=== PATIENT | male | born 1950 | race Caucasian/White ===

== ENCOUNTER 2018-05-26 21:33 | Emergency (ER) | payer OTHER ==
[~2018-05-26] VITALS: Ht 167.6 cm; Wt 74.8 kg
--- NOTE | 2018-05-26 21:59 | PHYS DOC ---
Past Medical History Past Medical History: Hypertension Additional Past Medical Histor: prostatism Smoking: Cigarettes Adult General Chief Complaint Chief Complaint: CHEST PAIN HPI HPI Patient is a 67-year-old male who presents to the emergency department via EMS for chest pain. He states he has been having chest pain on and off for the past month, usually precipitated by physical exertion or activity. He states that this evening, or get away from it, he experienced a more intense episode of anterior chest pressure, with radiation towards his neck and right shoulder area. The pain lasted about 30 minutes until EMS arrived on the scene and administered 324 mg of aspirin, as well as sublingual nitroglycerin, which resulted in the patient's pain completely resolving to the point that he is pain -free at this time. He denies current symptoms. He did not have any shortness of breath, nausea, vomiting, but states he did feel somewhat sweaty earlier. He states he has not had similar pain in the past and this episode of pain was much more intense. Other than the stated above there are no alleviating or exacerbating factors to the patient's symptoms. Review of Systems Review of Systems Constitutional: Denies fever or chills [] Eyes: Denies change in visual acuity, redness, or eye pain [] HENT: Denies nasal congestion or sore throat [] Respiratory: Denies cough or shortness of breath [] Cardiovascular: No additional information not addressed in HPI [] GI: Denies abdominal pain, nausea, vomiting, bloody stools or diarrhea [] : Denies dysuria or hematuria [] Musculoskeletal: Denies back pain or joint pain [] Integument: Denies rash or skin lesions [] Neurologic: Denies headache, focal weakness or sensory changes [] Endocrine: Denies polyuria or polydipsia [] All other systems were reviewed and found to be within normal limits, except as documented in this note. Current Medications Current Medications Current Medications Medications (Trade) Dose Ordered Sig/Delma Start Time Stop Time Status Last Admin Dose Admin Nitroglycerin (Nitro-Bid Oint) 1 inch 1X ONCE 05/26/18 22:15 05/26/18 22:16 DC 05/26/18 22:27 1 INCH Allergies Allergies Allergies Coded Allergies Type Severity Reaction Last Updated Verified No Known Drug Allergies 05/26/18 No Physical Exam Physical Exam PHYSICAL EXAM: CONSTITUTIONAL: Well developed, well nourished HEAD: normocephalic, atraumatic. There is a dark large raised mole on the scalp , with some mild surrounding erythema which the patient states has been gradually enlarging over the past 15 years. EENT: PERRL, EOMI. Conjunctivae normal color, sclerae non-icteric; moist mucous membranes. NECK: Supple, non-tender; no meningismus. LUNGS: Lungs CTA, breathing even and unlabored. Normal air movement. HEART: Regular rate and rhythm, no murmur CHEST: No deformity; non-tender ABDOMEN: The abdomen is soft, and non-tender, no masses or bruits. EXTREM: Normal ROM; no deformity, no calf tenderness. Normal pulses palpable in all extremities. There is no pedal edema. SKIN: No rash; no diaphoresis NEURO: Alert; normal speech and cognition; CN's grossly intact; strength grossly intact without focal deficit. BACK: No CVA TTP. Current Patient Data Vital Signs Vital Signs Date Time Temp Pulse Resp B/P (MAP) Pulse Ox O2 Delivery O2 Flow Rate FiO2 05/26/18 23:00 76 20 131/77 (95) 93 Room Air 05/26/18 21:33 97.7 97.7 Lab Values Laboratory Tests Test 05/26/18 21:56 White Blood Count 9.5 x10^3/uL (4.0-11.0) Red Blood Count 4.29 x10^6/uL (4.30-5.70) L Hemoglobin 13.7 g/dL (13.0-17.5) Hematocrit 39.5 % (39.0-53.0) Mean Corpuscular Volume 92 fL (79-100) Mean Corpuscular Hemoglobin 32 pg (25-35) Mean Corpuscular Hemoglobin Concent 35 g/dL (31-37) Red Cell Distribution Width 14.9 % (11.5-14.5) H Platelet Count 186 x10^3/uL (140-400) Neutrophils (%) (Auto) 51 % (31-73) Lymphocytes (%) (Auto) 32 % (24-48) Monocytes (%) (Auto) 11 % (0-9) H Eosinophils (%) (Auto) 5 % (0-3) H Basophils (%) (Auto) 1 % (0-3) Neutrophils # (Auto) 4.8 x10^3uL (1.8-7.7) Lymphocytes # (Auto) 3.0 x10^3/uL (1.0-4.8) Monocytes # (Auto) 1.1 x10^3/uL (0.0-1.1) Eosinophils # (Auto) 0.5 x10^3/uL (0.0-0.7) Basophils # (Auto) 0.1 x10^3/uL (0.0-0.2) Prothrombin Time 12.6 SEC (11.7-14.0) Prothrombin Time INR 1.0 (0.8-1.1) Sodium Level 144 mmol/L (136-145) Potassium Level 3.6 mmol/L (3.5-5.1) Chloride Level 105 mmol/L (98-107) Carbon Dioxide Level 27 mmol/L (21-32) Anion Gap 12 (6-14) Blood Urea Nitrogen 26 mg/dL (8-26) Creatinine 1.6 mg/dL (0.7-1.3) H Estimated GFR (Cockcroft-Gault) 43.3 BUN/Creatinine Ratio 16 (6-20) Glucose Level 110 mg/dL (70-99) H Calcium Level 9.2 mg/dL (8.5-10.1) Total Bilirubin 0.2 mg/dL (0.2-1.0) Aspartate Amino Transferase (AST) 20 U/L (15-37) Alanine Aminotransferase (ALT) 17 U/L (16-63) Alkaline Phosphatase 57 U/L (46-116) Creatine Kinase 140 U/L (39-308) Creatine Kinase MB (Mass) 2.1 ng/mL (0.0-3.6) Creatine Kinase MB Relative Index 1.5 % (0-4) Troponin I Quantitative < 0.017 ng/mL (0.000-0.055) SX-Ynw-D-Type Natriuretic Peptide 245 pg/mL (0-124) H Total Protein 7.6 g/dL (6.4-8.2) Albumin 3.3 g/dL (3.4-5.0) L Albumin/Globulin Ratio 0.8 (1.0-1.7) L Lipase 331 U/L (73-393) Laboratory Tests 05/26/18 21:56 Laboratory Tests 05/26/18 21:56 EKG EKG [Normal sinus rhythm at a rate of 77 beats for minute, normal axis, normal intervals. There are no acute ischemic ST/T changes.] Radiology/Procedures Radiology/Procedures ER physician preliminary chest x-ray interpretation: No acute disease.[] Course & Med Decision Making Course & Med Decision Making Pertinent Labs and Imaging studies reviewed. (See chart for details) [10:44 PM: The patient's condition remained stable. I strongly recommended the patient stay in the hospital for further evaluation as I have a somewhat high suspicion that the patient's symptoms are related to coronary artery disease. I had an extensive discussion with the patient about the limitations of ER cardiac evaluation in definitively ruling out acute coronary syndrome. We discussed limitation of the ER evaluation and a singe ED troponin in r/o AMI, and the risks involved in missed diagnosis of acute coronary syndrome including or permanent debility. I recommended overnight observation for further formal cardiac evaluation to rule out acute coronary syndrome. The, the patient declined and neither myself nor the patient's were able to convince him. After expressing understanding of the limitations of ER cardiac evaluation, as well as the risks of missed diagnosis, the patient declined further cardiac evaluation at this time. The patient was mentally competent, and given opportunity to ask questions about the diagnosis and recommended plan of care. I stressed the importance of outpatient follow-up, and returning to the emergency department for new or worsening symptoms, or if the patient is agreeable to undergo further cardiac evaluation. ] I also recommended the patient seek dermatology evaluation of his chronic scalp lesion is very some concern for underlying skin malignancy. Dragon Disclaimer Dragon Disclaimer This electronic medical record was generated, in whole or in part, using a voice recognition dictation system. Departure Departure Impression: Primary Impression: Acute chest pain Disposition: 07 AGAINST MEDICAL ADVICE Condition: STABLE Referrals: MICHAEL MARIE MD Patient Instructions: Angina Additional Instructions: Begin taking 81 mg aspirin once daily. The physician who saw you today thought he warranted further urgent cardiac evaluation. You declined. It is important that you follow up immediately, therefore you should call the cardiology office tomorrow to schedule an outpatient follow-up. Alternatively, if you are willing to undergo further evaluation and return to the emergency department immediately. If you develop any new or recurrent chest pain, return to the emergency department immediately. GABBY THOMPSON MD May 26, 2018 21:59
[2018-05-26 22:06] LABS: BASO # 0.1 x10^3/uL (0.0-0.2); BASO % 1 % (0-3); EOS # 0.5 x10^3/uL (0.0-0.7); EOS % 5 % (0-3); HEMATOCRIT 39.5 % (39.0-53.0); HEMOGLOBIN 13.7 g/dL (13.0-17.5); LYMPH % 32 % (24-48); MEAN CORPUSCULAR HEMOGLOBIN 32 pg (25-35); MEAN CORPUSCULAR HGB CONC 35 g/dL (31-37); MEAN CORPUSCULAR VOLUME 92 fL (79-100); MONO # 1.1 x10^3/uL (0.0-1.1); MONO % 11 % (0-9); NEUT # 4.8 x10^3uL (1.8-7.7); NEUT % 51 % (31-73); PLATELET COUNT 186 x10^3/uL (140-400); RED BLOOD COUNT 4.29 x10^6/uL (4.30-5.70); RED CELL DISTRIBUTION WIDTH 14.9 % (11.5-14.5); WHITE BLOOD COUNT 9.5 x10^3/uL (4.0-11.0)
[2018-05-26 22:16] LABS: PROTHROMBIN TIME PATIENT 12.6 SEC (11.7-14.0)
[2018-05-26 22:18] LABS: CALCIUM 9.2 mg/dL (8.5-10.1); CREATININE 1.6 mg/dL (0.7-1.3); GFR 43.3; POTASSIUM 3.6 mmol/L (3.5-5.1)
[2018-05-26 22:24] LABS: ALBUMIN 3.3 g/dL (3.4-5.0); ALBUMIN/GLOBULIN RATIO 0.8 (1.0-1.7); TOTAL BILIRUBIN 0.2 mg/dL (0.2-1.0); TOTAL PROTEIN 7.6 g/dL (6.4-8.2)
[2018-05-26] MEDS: NITROGLYCERIN OINT 1 GM PACKET. TP ONE (22:27)
[2018-05-26 23:00] VITALS: BP 131/77
--- NOTE | 2018-05-26 23:20 | RAD ---
AP portable chest radiograph 05/26/2018 Clinical History: Chest pain which radiates down the right arm. An AP erect portable digital radiograph of the chest was obtained. No previous studies are available for comparison. The cardiac silhouette is normal in size. Atherosclerotic calcification thoracic aorta is noted. Right basilar subsegmental atelectasis is seen. No pneumothorax or pleural effusion is noted. The osseous structures are grossly intact. Degenerative changes are seen involving the thoracic spine. IMPRESSION: Right basilar subsegmental atelectasis. Electronically signed by: Yash Nesbitt MD (05/26/2018 11:17 PM) [facility]
--- NOTE | 2018-05-27 10:21 | EKG ---
[facility] [address] [place] [address] Test Date: 2018-05-26 Test Time: 21:35:54 Pat Name: RASHEL HER Department: Room: Gender: M Floor Winder: : 1950 Requested By: GABBY THOMPSON Order Number: [id number] Reading MD: Measurements Intervals Whitt Rate: 77 P: 53 NM: 154 QRS: 36 QRSD: 82 T: 34 QT: 390 QTc: 443 Interpretive Statements SINUS RHYTHM NO SPECIFIC ECG ABNORMALITIES RI6.01 No previous ECG available for comparison
== END 2018-05-26 23:09 | disposition left against medical advice (07) ==
LOC: ER 21:33
DX: R07.89 Other chest pain (principal); I10 Essential (primary) hypertension; F17.210 Nicotine dependence, cigarettes, uncomplicated
CPT/HCPCS: 36415; 71045; 80053; 82553; 83690; 83880; 84484; 85025; 85610; 93005; 99285-25

== ENCOUNTER → 2018-06-08 | Outpatient (CLI) | payer OTHER ==
[2018-05-26 23:00] VITALS: BP 131/77
--- NOTE | 2018-06-08 16:33 | CARD ---
MR#: [id number] Date of Study: 06/08/2018 Ordering Physician: ANA PARSON, Referring Physician: ANA PARSON, Tech: Lorin Scott RDCS APPROVED REPORT INDICATION Chest Pain PROCEDURE The patient underwent an Exercise Stress Test using the Charles Protocol. Blood pressure, heart rate, a nd EKG were monitored. An Echocardiogram was performed by licensed psychiatric technician in four stages in quad fashion. At peak stress four se lected images were obtained and placed side by side with resting images for comparison. STRESS ECHO FINDINGS The resting Echocardiogram showed normal left ventricular systolic contractility with an estimated Ej ection Fraction of about 55 %. The Resting Echocardiogram showed normal augmentation of myocardial wall segments using a 16 segment model.Posterobasal wall hypokinesis at peak stress consistent with ischemia. Test Type: Exercise Stress Nurse/Tech: Aura Montenegro RN Test Indications: chest pain Cardiac History and Allergies: see EMR Medications: see EMR Medical History: see EMR Resting ECG: SR Resting Heart Rate: 61 bpm Resting Blood Pressure: 129/61mmHg Pretest Chest Pain: None Nurse/Tech Notes lungs CTA, S1S2 Consent: The procedure was explained to the patient in lay terms. Informed consent was witnessed. Darrius eout was entered into [employer]. History and Stress Test performed by aura Montenegro Stress Symptoms dyspnea. pt unable to reach target heart rate. pt stated his legs were going to give out POST EXERCISE Reason for Termination: Patient request Target HR: 130 Max HR: 97 bpm 63% of Maximum Predicted HR: 153 bpm Exercise duration: 3:47 min:sec, Stage Exercise capacity: 4.6METs Max Blood Pressure: 140/58mmHg Blood Pressure response to exercise: Normal blood pressure response during stress. Heart Rate response to exercise: normal response Chest Pain: Yes. chest pain 5/10 that resided by termination of test Arrhythmia: No. ST Change: Yes. St depression II, III, AVF, V2,V3,V4 INTERPRETATION Stress EKG Conclusion: Baseline EKG showed sinus rhythm. Inferior and anterior ST depression at peak stress consistent with ischemia. No significant arrhyhmias. <Conclusion> Treadmill exercise stress echocardiogram was technically difficult study and patient achieved subopti mal stress level of 63% age predicted maximum heart rate. EKG showed ischemic changes in inferior and anterior leads and stress echo images showed posterobasal wall hypokinesis consistent with ischemia. Normal left ventricle systolic function at baseline with ejection fraction estimated at 55%. Patient had poor activity tolerance. Consider cardiac catheterization. Signed by : Yaya Blackman, Electronically Approved : 06/08/2018 16:32:25
== END | disposition home or self-care (01) ==
LOC: ECHO 12:47
PROVIDERS: ATTEND Internal Medicine
DX: I20.8 Other forms of angina pectoris (principal); R07.89 Other chest pain; F17.210 Nicotine dependence, cigarettes, uncomplicated
CPT/HCPCS: 93017; 93350

== ENCOUNTER → 2018-07-22 | Outpatient (CLI) | payer OTHER ==
[2018-07-05 14:51] VITALS: BP 118/54
[~2018-07-22] MED LIST: ALBU2.5V5 NEB; ALPR0.254 PO; AMIO200T4 PO; AMLO10TA6 PO; ASPI325T8 PO; ATOR20TA58 PO; Bisacodyl Supp PR; CEPH-264 PO; FAMO20TA5 PO; FLUT1DIS3 IH; GLUC100018 PO; MELA3TAB2 PO; METO-239 PO; METO25TA4 PO; MULT1CAP12 PO; MULT1TAB52 PO; NICO1PAT25 TP; NITR0.4T SL; OXYC5TAB4 PO; PRAZ5CAP2 PO; SENN-22 PO; TRAM50TA PO
--- NOTE | 2018-07-22 15:33 | RAD ---
Chest, 2 views, 07/22/2018: HISTORY: Postop CABG Comparison is made to a study from 07/03/2018. Sternal wires are in place. The heart size and pulmonary vascularity are normal. The lung bases have cleared. There is no evidence of pneumothorax. No significant pleural fluid is seen. Scattered spurs are present in the spine. IMPRESSION: No acute cardiopulmonary abnormality is detected. Electronically signed by: Armando Guzman MD (07/22/2018 3:30 PM) [facility]
== END | disposition home or self-care (01) ==
LOC: RAD 12:09
PROVIDERS: ATTEND Thoracic Surgery (Cardiothoracic Vascular Surgery)
DX: Z48.812 Encounter for surgical aftercare following surgery on the circulatory system (principal); Z95.5 Presence of coronary angioplasty implant and graft
CPT/HCPCS: 71046

== ENCOUNTER → 2018-11-17 | Outpatient (CLI) | payer OTHER ==
[2018-07-05 14:51] VITALS: BP 118/54
[~2018-11-17] MED LIST changes: -AMLO10TA6 PO; +AMLO10TA8 PO; +POTA20TA82 PO; +SERT25TA PO
--- NOTE | 2018-11-17 09:44 | RAD ---
MR#: [id number] Date of Study: 11/17/2018 Ordering Physician: MICHAEL MARIE, Referring Physician: MICHAEL MARIE, Tech: Mj Osborne MBA, RDMS, RVT, RDCS, RTR APPROVED REPORT Patient Location: OUT-PATIENT Indications PAD VELOCITY AND DOPPLER WAVEFORM ANALYSIS RIGHT cm/secWaveformSeverity LEFT cm/secWaveform Severity dCFA 135.0BiphasicdCFA 111.0Triphasic Prof Fem Art. 194.0BiphasicProf Fem Art. 132.0Biphasic Fem Art Prox. 129.0TriphasicFem Art Prox. 115.0Monophasic Fem Art Mid. 133.0TriphasicFem Art Mid. 447.0Monophasic Fem Art Dist. 150.0BiphasicFem Art Dist. 58.0Monophasic Pop Art(Fossa) 140.0BiphasicPop Art(AK) 176.0Monophasic C ARCHITECT Prox. 60.0BiphasicPTA Prox. 82.0Monophasic C ARCHITECT Dist. 66.0BiphasicPTA Dist. 49.0Monophasic Per Art Mid. 46.0BiphasicPer Art Mid. 27.0Monophasic NEERAJ Prox. 77.0BiphasicATA Prox. 26.0Monophasic DPA 38BiphasicDPA 21Monophasic Image Findings Grayscale images of the bilateral lower extremity arterial vessels reveals mild to moderate plaque gr eater on the left compared to the right. Spectral waveforms and color Doppler on the right side are grossly within normal limits without any s ignificant flow-limiting stenosis identified. There is three-vessel runoff below the knee. Spectral waveforms and color Doppler on the left side is suggestive of greater than 70% stenosis invo lving the mid left superficial femoral artery. There is likely diffuse disease involving the poplitea l segment as well. There is three-vessel runoff below the knee in a monophasic wave pattern suggestiv e of significant stenosis more proximally. Critical Notification Critical Value: No <Conclusion> 1. High-grade left SFA stenosis. 2. Bilateral three-vessel runoff with mild disease on the right side. Signed by : Michael Marie, Electronically Approved : 11/17/2018 09:43:56
== END | disposition home or self-care (01) ==
LOC: US 06:45
PROVIDERS: ATTEND Internal Medicine Cardiovascular Disease
DX: I70.293 Other atherosclerosis of native arteries of extremities, bilateral legs (principal)
CPT/HCPCS: 93925

== ENCOUNTER 2018-12-29 06:54 | Inpatient (IN) | payer OTHER ==
[~2018-12-29] VITALS: Ht 167.6 cm; Wt 72.6 kg
[2018-12-29] VITALS (10 sets, daily range): BP systolic 108–140; BP diastolic 53–75
[~2018-12-29 06:54] MED LIST changes: -POTA20TA82 PO; -SERT25TA PO
[2018-12-29 07:31] LABS: CALCIUM 9.3 mg/dL (8.5-10.1); CREATININE 1.5 mg/dL (0.7-1.3); GFR 46.5; POTASSIUM 4.3 mmol/L (3.5-5.1)
[2018-12-29] MEDS ORDERED: METO25TA4 PO (07:31)
[2018-12-29] MEDS ORDERED: SERT25TA PO (07:31)
[2018-12-29] MEDS ORDERED: POTA20TA82 PO (07:31)
[2018-12-29 07:41] LABS: HEMATOCRIT 39.5 % (39.0-53.0); HEMOGLOBIN 12.6 g/dL (13.0-17.5); RED BLOOD COUNT 4.86 x10^6/uL (4.30-5.70); RED CELL DISTRIBUTION WIDTH 21.3 % (11.5-14.5); WHITE BLOOD COUNT 9.4 x10^3/uL (4.0-11.0)
[2018-12-29] MEDS ORDERED: LIDOCAINE 1% Multi-Dose 20 ML VIAL. ONE (08:17)
[2018-12-29] MEDS ORDERED: IODIXANOL 320 MG/ML 100 ML VIAL. ONE ×2 (08:17→10:21)
[2018-12-29] MEDS ORDERED: HEPARIN for ARTERIAL LINE 1,500 ML ONE (08:18)
[2018-12-29] MEDS ORDERED: MIDAZOLAM HCL/PF 2 MG/2 ML VIAL. ONE (09:05)
[2018-12-29] MEDS ORDERED: fentaNYL PF VIAL 100 MCG/2 ML VIAL ONE ×3 (09:06→10:56)
--- NOTE | 2018-12-29 09:23 | PDOC ---
MODERATE SEDATION ASSESSMENT RISKS/ALTERNATIVES Risks/Alternatives Risks and alternatives of this type of sedation and procedure discussed with: RISK/ALTERNATIVES: Patient H & P ON CHART H & P H & P on chart and reviewed for co-morbid conditions and appropriate labs. H&P ON CHART: Yes STATUS PREG STATUS ASSESSED: N/A MEDS/ALLERGIES REVIEWED Meds/Allergies Reviewed Medications and Allergies including time and route of recently administered narcotics and sedatives. MEDS/ALLERGIES REVIEWED: Yes ASA RATING ASA RATING: II AIRWAY ASSESSMENT Airway Assessment Airway patency, oral function limitations, presence of caps, crowns, dentures, partials, and ability to extend neck assessed. AIRWAY ASSESSMENT: Yes MALLAMPATI SCORE MALLAMPATI SCORE: II PRE-SEDATION ASSESSMENT PRE-SEDATION ASSESSMENT: Yes MICHAEL MARIE MD December 29, 2018 09:23
[2018-12-29] MEDS ORDERED: HEPARIN for IV BOLUS 10,000 UNIT/10 ML VIAL. ONE (09:53)
[2018-12-29] MEDS ORDERED: NITROGLYCERIN 200 MCG/2 ML SYRINGE FOR CATH/VASC LAB. ONE ×2 (10:56→10:57)
[2018-12-29] MEDS ORDERED: LIDOCAINE 1% Multi-Dose 20 ML VIAL. INJ ONE (11:15)
[2018-12-29] MEDS ORDERED: NITROGLYCERIN 200 MCG/2 ML SYRINGE FOR CATH/VASC LAB. IART ONE (11:15)
[2018-12-29] MEDS ORDERED: MIDAZOLAM HCL/PF 2 MG/2 ML VIAL. IV ONE (11:15)
[2018-12-29] MEDS ORDERED: HEPARIN for IV BOLUS 10,000 UNIT/10 ML VIAL. IART ONE (11:15)
[2018-12-29] MEDS ORDERED: fentaNYL PF VIAL 100 MCG/2 ML VIAL IV ONE (11:15)
[2018-12-29] MEDS ORDERED: TICAGRELOR 90 MG TABLET. PO ONE (11:15)
[2018-12-29] MEDS ORDERED: IODIXANOL 320 MG/ML 100 ML VIAL. IART ONE (11:15)
[2018-12-29] MEDS ORDERED: TICAGRELOR 90 MG TABLET. ONE (11:17)
[2018-12-29] MEDS ORDERED: CONTRAST GIVEN. MC PRN (11:30)
--- NOTE | 2018-12-29 12:09 | CARD ---
MR#: [id number] Date of Study: 12/29/2018 Ordering Physician: MICHAEL MARIE, Referring Physician: MICHAEL MARIE, Tech: RT Marcy (R) NATHAN APPROVED REPORT Patient StatusOUT-PATIENT Pad Machine Operator: RT Marcy (R) Procedure(s) performed: moderate sedation: 119 min fluoro time: 24.3 min DAP: 106 Gycm2 contrast: 150ml Abdominal aortogram with iliofemoral run-off. Additional second order diagnostic cath placement in the tibioperoneal trunk for angiography PVI of the mid and distal SFA PVI of the popliteal artery HISTORY The patient is a 68 year-old male with a history of : coronary artery disease, tobacco history() , hy pertension, dyslipidemia. INDICATION FOR PROCEDURE The indication(s) include : Bilateral claudication. PROCEDURE NARRATIVE After appropriate informed consent, the patient was brought to the corn lab technician and placed in the supine position. Preprocedural timeout was completed and confirmed the right patient and procedure. The bila teral groins were prepped and draped in usual sterile fashion. Moderate sedation acheived with Fentan yl and Versed. The patient received 2000 units of Heparin for anticoagulation. Access: Under lidocaine local anesthesia, a 5Fr introducer sheath was placed in the RCFA via the gen fied seldinger technique with a J-tipped guidewire and an 18g needle. Diagnostic angiography was then performed using a 5Fr Omniflush catheter with digital subtraction angiography. Next, the contralater al (LCFA) was accessed with the aid of the Omniflush catheter and a J-tipped guidewire. The omniflush was then exchanged for a long glide catheter which was then placed in the RCFA and tibioperoneal tr unk. Repeat left lower extremity with DSA was performed. Subsequently, the glidecatheter was used to do a pullback maneuver on the LSFA/Popliteal stenosis which confirmed significant stenosis. 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 RENAL arteries: Not well visualized but appear to demonstrate single renal arteries without critical disease. RCIA: Mild irregularities of up to 10%. REIA: Moderate irregularities of up to 40%. RIIA: No significant disease. RCFA: No significant disease. RSFA: Moderate distal SFA disease of 50%. RPOP: No significant disease. RTP trunk: No significant disease. LCIA: Mild diffuse irregularities of upto 20%. CASEY: No significant disease. LIIA: No significant disease. LCFA: No significant disease. LSFA: Has a focal mid 80% stenosis, diffuse mid to distal 70% stenosis with 20 mm Hg gradient on pull back. LPOP: P1/P2 segment with diffuse 70% stenosis. LAT: Moderate proximal 50% stenosis. LTP trunk: No significant disease. LPER: Moderate mid 40-50% stenosis. LPT: No significant disease and is the main run-off to the left lower extremity. INTERVENTIONAL TECHNIQUE: Based on signficant lifestyle limiting claudication, severe SFA/popliteal disease, an intervention wa s planned. Heparin was given for anticoagulation. The 5Fr sheath was exchanged for a 6Fr amber sheath . Next, a 0.018'' Command wire was placed in the distal PT. Balloon angioplasty was performed of the SFA and popliteal arteries after a pull back confirmed significant stenosis. The SFA was angioplastie d with a 5.0/100 mm Martin balloon. The popliteal artery was stented with a Supera 5.0/120 mm self ex panding stent. The SFA was stented with a Supera 5.0/100 mm stent. Final post-PCI angiography demonst rated excellent stent expansion with good peripheral run-off to the foot. No wire or guide related co mplications noted. CLOSURE: At case completion, the right sided sheath was removed and hemostasis was achieved with an A ngioseal device. The patient received 180mg of Ticagrelor at case completion. COMPLICATIONS: None Conclusion 1. [place] category 4 claudication 2. Severe left sided SFA/Popliteal disease s/p PVI with Supera 5.0/100 in the mid to distal SFA and 5 .0/120 mm Supera in the distal SFA/popliteal junction. Recommendations ASA 81mg daily Ticagrelor 90mg bid x 30 days. Continue efforts towards smoking cessation High dose statin therapy Signed by : Michael Marie, Electronically Approved : 12/29/2018 12:09:06
[2018-12-29] MEDS ORDERED: NON FORMULARY ITEM (Fluticasone/Salmeterol (Advair 250-50 Diskus) 1 PUFF) IH PRN (12:30)
[2018-12-29] MEDS ORDERED: METOPROLOL TART IMMED RELEASE 25 MG TABLET. PO SCH (13:00)
[2018-12-29] MEDS ORDERED: POTASSIUM CHLORIDE 20 MEQ TABLET.ER. PO SCH (13:00)
[2018-12-29] MEDS ORDERED: ALBUTEROL SULFATE 2.5 MG/3 ML NEBU. NEB SCH (13:00)
[2018-12-29] MEDS ORDERED: SERTRALINE 25 MG TABLET. PO SCH (13:00)
[2018-12-29] MEDS ORDERED: ASPIRIN 325 MG TABLET PO SCH (13:00)
--- NOTE | 2018-12-29 16:30 | NUR ---
Pt to unit from recovery for post femoral runoff with RETURNING OFFICER/stent x 2. Pt was to be flat for 2-4 hours. Pt groin checked at 1540, groin soft with minimal bleeding to the site. Pulses good in bilateral feet. Pt was instructed that he was now able to sit up, however he would need to take it easy and staff would need to continue to monitor the site for bleeding. Pt verbalized understanding and stated that he was going to go to the restroom and he would check his site once he returned to bed and let staff know if there was anymore bleeding. Staff assessed cardiac monitors at 1610 and noticed pt was off the cardiac rehabilitation program director. Upon entering the pt room, pt was gone. Premises searched and patient unable to be found. Pt off the cardiac rehabilitation program director at approximately 1554. Security notified, data warehouse manager notified, and physician notified. Staff attempted to contact patient with no success. Next of kin contacted as well with no success. [facility] non emergent line called and a wellness check requested. Pt is in need of Brilinta 90 mg BID for 30 days. Continuing to attempt to contact patient for further instructions.
--- NOTE | 2018-12-29 17:28 | PDOC ---
Provider Note Provider Note Patient left the hospital AMA prior to being discharged. He was still on bed rest protocol and after going to the bathroom apparently left without notifying nursing personnel or waiting for prescriptions. Attempts have been made by nursing staff to contact patient but he or his family has not returned phone calls for prescriptions. Well fare check done by the police and apparently patient is at home. Will attempt to continue to convey to patient importance of post-procedure care, driving restrictions etc if he calls back. MICHAEL MARIE MD December 29, 2018 17:28
[2018-12-29] MEDS ORDERED: BUDESONIDE 0.5 MG/2 ML NEBU. NEB SCH (20:00)
[2018-12-29] MEDS ORDERED: NON FORMULARY ITEM (Melatonin 10 MG) PO SCH (21:00)
[2018-12-29] MEDS ORDERED: ATORVASTATIN CALCIUM 20 MG TABLET PO SCH (21:00)
[2018-12-29] MEDS ORDERED: PRAZOSIN 1 MG CAPSULE. PO SCH (21:00)
[2018-12-30] MEDS ORDERED: ASPIRIN 325 MG TABLET PO SCH (09:00)
--- NOTE | 2018-12-30 10:19 | NUR ---
Called Mr. Lock home phone and spoke with him at 1015 am on 12/30/18 in regards to him leaving AMA on 12/29/18 post procedure. He told me that their must have been a misunderstanding, because the Dr and the Nurse told me I was going home, "I did not realize I was supposed to wait for paper work" Mr. Adler did tell me that his procedure site was puffy and he was in no pain and it was not bleeding. I did tell him he needs to apply minimal pressure to the site and sit down with legs elevated and have someone drive him to the cardiology office to examine the site and to obtain his Brilanta script. He advised me that he has no ride to the Doctors office until 4:30pm and I said the office will be closed at that time. I did say you may consider going to the Emergency room.
== END 2018-12-29 16:10 | disposition left against medical advice (07) | DRG 254 ==
LOC: CCL 06:54 → 2 SOUTH 11:13
PROVIDERS: ADMIT Internal Medicine Cardiovascular Disease; ATTEND Internal Medicine Cardiovascular Disease
PROC: 047L3DZ Dilation of Left Femoral Artery with Intraluminal Device, Percutaneous Approach (ICD-10-PCS; principal; 2018-12-29)
PROC: 047N3DZ Dilation of Left Popliteal Artery with Intraluminal Device, Percutaneous Approach (ICD-10-PCS; 2018-12-29)
PROC: B41D1ZZ Fluoroscopy of Aorta and Bilateral Lower Extremity Arteries using Low Osmolar Contrast (ICD-10-PCS; 2018-12-29)
PROC: B4181ZZ Fluoroscopy of Bilateral Renal Arteries using Low Osmolar Contrast (ICD-10-PCS; 2018-12-29)
DX: I70.212 Atherosclerosis of native arteries of extremities with intermittent claudication, left leg (principal); I25.10 Atherosclerotic heart disease of native coronary artery without angina pectoris; I10 Essential (primary) hypertension; E78.5 Hyperlipidemia, unspecified; Z87.891 Personal history of nicotine dependence; Z53.21 Procedure and treatment not carried out due to patient leaving prior to being seen by health care provider; Z95.1 Presence of aortocoronary bypass graft; J44.9 Chronic obstructive pulmonary disease, unspecified
CPT/HCPCS: 37226; G0269; 36415; 75625; 75710; 80048; 85027; 85347; 85610; 99152; 99153; C1713; C1769; C1876; C1885; C1892; J1644; J2250; J3010; J3490; Q9967

== ENCOUNTER 2019-02-08 15:56 | Emergency (ER) | payer OTHER ==
[~2019-02-08] VITALS: Ht 165.1 cm; Wt 72.6 kg
[~2019-02-08 15:56] MED LIST changes: +POTA20TA82 PO; +SERT25TA PO
[2019-02-08] MEDS ORDERED: methylPREDNISolone SOD SUCC PF 125 MG/2 ML VIAL. IV ONE (18:00)
[2019-02-08] MEDS ORDERED: IPRATRPIUM/ALBUTEROL 0.5/2.5MG 3 ML NEBU. NEB ONE (18:00)
[2019-02-08] MEDS ORDERED: IV NORMAL SALINE 1000ML BAG 1,000 ML IV ONE (18:00)
--- NOTE | 2019-02-08 18:06 | PHYS DOC ---
Past Medical History Past Medical History: CAD, Hypertension Additional Past Medical Histor: prostatism Past Surgical History: No Surgical History Additional Past Surgical Histo: BYPASS SURGERY Alcohol Use: None Drug Use: None Adult General Chief Complaint Chief Complaint: HEADACHE HPI HPI Patient is a 68 year old male who presents with headache, neck pain, low-grade fever, sore throat, cough and shortness of air. Has been ongoing since Wednesday. Seen at urgent care prior to coming to the ER and had a negative strep test. Rates his pain is 2 out of 10 when lying still but increases to 6 out of 10 when he moves his neck. Has not tried any interventions prior to arrival. Review of Systems Review of Systems Constitutional: Reports fever or chills [] Eyes: Denies change in visual acuity, redness, or eye pain [] HENT: Denies nasal congestion or sore throat [] Respiratory: Denies cough or shortness of breath [] Cardiovascular: No additional information not addressed in HPI [] GI: Denies abdominal pain, nausea, vomiting, bloody stools or diarrhea [] : Denies dysuria or hematuria [] Musculoskeletal: Denies back pain or but reports neck pain. Integument: Denies rash or skin lesions [] Neurologic: Reports headache denies focal weakness or sensory changes [] Endocrine: Denies polyuria or polydipsia [] Complete systems were reviewed and found to be within normal limits, except as documented in this note. Current Medications Current Medications Current Medications Medications (Trade) Dose Ordered Sig/Delma Start Time Stop Time Status Last Admin Dose Admin Albuterol/ Ipratropium (Duoneb) 3 ml 1X ONCE 02/08/19 18:00 02/08/19 18:01 DC 02/08/19 18:21 3 ML Methylprednisolone Sodium Succinate (SOLU-Medrol 125MG VIAL) 125 mg 1X ONCE 02/08/19 18:00 02/08/19 18:01 DC 02/08/19 18:17 125 MG Sodium Chloride 1,000 ml @ 1,000 mls/hr 1X ONCE 02/08/19 18:00 02/08/19 18:59 DC 02/08/19 18:17 1,000 MLS/HR Allergies Allergies Allergies Coded Allergies Type Severity Reaction Last Updated Verified No Known Drug Allergies 05/26/18 No Physical Exam Physical Exam Constitutional: Well developed, well nourished, no acute distress, non-toxic appearance. [] HENT: Normocephalic, atraumatic, bilateral external ears normal, oropharynx moist, no oral exudates, nose normal. [] Eyes: PERRLA, EOMI, conjunctiva normal, no discharge. [] Neck: Reduced range of motion, has tenderness, supple, no stridor. [] Cardiovascular:Heart rate regular rhythm, no murmur [] Lungs & Thorax: Bilateral breath sounds with rhonchi. Abdomen: Bowel sounds normal, soft, no tenderness, no masses, no pulsatile masses. [] Skin: Warm, dry, no erythema, no rash. [] Back: No tenderness, no CVA tenderness. [] Extremities: No tenderness, no cyanosis, no clubbing, ROM intact, no edema. [] Neurologic: Alert and oriented X 3, normal motor function, normal sensory function, no focal deficits noted. [] Psychologic: Affect normal, judgement normal, mood normal. [] Current Patient Data Vital Signs Vital Signs Date Time Temp Pulse Resp B/P (MAP) Pulse Ox O2 Delivery O2 Flow Rate FiO2 02/08/19 18:21 Room Air 02/08/19 16:50 98.6 100 16 157/71 (99) 95 98.6 Lab Values Laboratory Tests Test 02/08/19 18:05 White Blood Count 15.4 x10^3/uL (4.0-11.0) H Red Blood Count 4.44 x10^6/uL (4.30-5.70) Hemoglobin 12.0 g/dL (13.0-17.5) L Hematocrit 37.0 % (39.0-53.0) L Mean Corpuscular Volume 84 fL (79-100) Mean Corpuscular Hemoglobin 27 pg (25-35) Mean Corpuscular Hemoglobin Concent 32 g/dL (31-37) Red Cell Distribution Width 20.5 % (11.5-14.5) H Platelet Count 220 x10^3/uL (140-400) Neutrophils (%) (Auto) 75 % (31-73) H Lymphocytes (%) (Auto) 13 % (24-48) L Monocytes (%) (Auto) 9 % (0-9) Eosinophils (%) (Auto) 2 % (0-3) Basophils (%) (Auto) 1 % (0-3) Neutrophils # (Auto) 11.6 x10^3uL (1.8-7.7) H Lymphocytes # (Auto) 2.0 x10^3/uL (1.0-4.8) Monocytes # (Auto) 1.4 x10^3/uL (0.0-1.1) H Eosinophils # (Auto) 0.3 x10^3/uL (0.0-0.7) Basophils # (Auto) 0.1 x10^3/uL (0.0-0.2) Platelet Estimate Pending Sodium Level 139 mmol/L (136-145) Potassium Level 3.8 mmol/L (3.5-5.1) Chloride Level 103 mmol/L (98-107) Carbon Dioxide Level 27 mmol/L (21-32) Anion Gap 9 (6-14) Blood Urea Nitrogen 15 mg/dL (8-26) Creatinine 1.5 mg/dL (0.7-1.3) H Estimated GFR (Cockcroft-Gault) 46.5 BUN/Creatinine Ratio 10 (6-20) Glucose Level 120 mg/dL (70-99) H Lactic Acid Level 1.5 mmol/L (0.4-2.0) Calcium Level 9.1 mg/dL (8.5-10.1) Total Bilirubin 0.4 mg/dL (0.2-1.0) Aspartate Amino Transferase (AST) 12 U/L (15-37) L Alanine Aminotransferase (ALT) 14 U/L (16-63) L Alkaline Phosphatase 57 U/L (46-116) Total Protein 8.3 g/dL (6.4-8.2) H Albumin 3.1 g/dL (3.4-5.0) L Albumin/Globulin Ratio 0.6 (1.0-1.7) L Laboratory Tests 02/08/19 18:05 Laboratory Tests 02/08/19 18:05 EKG EKG [] Radiology/Procedures Radiology/Procedures []PATIENT: RASHEL HERACCOUNT: [id number]#: [id number] : 1950 LOCATION: ER AGE: 68 SEX: M EXAM STATUS: REG ER ORD. PHYSICIAN: ALANNA ORTEGA APRN REASON: shortness of breath PROCEDURE: CHEST PA & LATERAL PA and lateral chest. HISTORY: Short of breath PA and lateral views were taken of the chest. Lungs are clear. Patient had previous bypass. There are nipple shadows on each side. There is no pleural effusion. IMPRESSION: 1. No acute infiltrates. Electronically signed by: Oscar Lentz MD (02/08/2019 6:13 PM) [facility] PATIENT: RASHEL HER ACCOUNT: [id number] : 1950 LOCATION: ER AGE: 68 SEX: M EXAM STATUS: REG ER ORD. PHYSICIAN: ALANNA ORTEGA APRN REASON: headache, neck stiffness and fever since Wednesday PROCEDURE: CT HEAD WO CONTRAST CT brain without contrast. HISTORY: Headaches, neck stiffness, fever CT scan of the brain was done without contrast. Sinuses are clear. Mastoids are normally aerated. There is no intracranial hemorrhage or subdural hematoma. There is no mass or shift of the midline. An acute CVA is not identified. Ventricles are normal in size. IMPRESSION: 1. No intracranial hemorrhage or acute finding noted. PQRS Compliance Statement: One or more of the following individualized dose reduction techniques were utilized for this examination: 1. Automated exposure control 2. Adjustment of the mA and/or kV according to patient size 3. Use of iterative reconstruction technique Electronically signed by: Oscar Lentz MD (02/08/2019 6:58 PM) [facility] Course & Med Decision Making Course & Med Decision Making Pertinent Labs and Imaging studies reviewed. (See chart for details) Will get labs, chest x-ray, breathing treatment, steroid, and CT Head. Labs are baseline and unremarkable with the exception of elevated WBC count. Patient is non-toxic in appearance and based on presentation appears to be viral in nature. Also likely has a musculoskeletal strain will prescribe flexeril to go home on as well as naproxen. Imaging is negative. Consulted with Dr. Christina who does not believe a lumbar puncture is warranted for further workup. Patient has a negative kernigs sign. Dragon Disclaimer Dragon Disclaimer This electronic medical record was generated, in whole or in part, using a voice recognition dictation system. Departure Departure Impression: Primary Impression: Viral illness Additional Impression: Musculoskeletal pain Disposition: HOME, SELF-CARE Condition: STABLE Referrals: ANA PARSON MD (PCP) Patient Instructions: Musculoskeletal Pain Additional Instructions: Thank you for visiting [facility]. We appreciate you trusting us with your care. If any additional problems come up don't hesitate to return to visit us. Please follow up with your primary care provider so they can plan additional care if needed and know about the problem that you had. If symptoms worsen come back to the Emergency Department. Any concerning symptoms that start such as chest pain, shortness of Air, weakness or numbness on one side of the body, running high fevers or any other concerning symptoms return to the ER. Please fill your medications at any pharmacy and follow the prescription instructions. Scripts Cyclobenzaprine Hcl (CYCLOBENZAPRINE HCL) 10 Mg Tablet 1 TAB PO TID PRN for MUSCLE PAIN, #30 TAB Prov: ALANNA ORTEGA APRN 02/08/19 Naproxen (NAPROXEN) 500 Mg Tablet.dr 1 TAB PO BID PRN for PAIN, #30 TAB 1 Refill Prov: ALANNA ORTEGA APRN 02/08/19 Problem Qualifiers ALANNA ORTEGA APRN Feb 08, 2019 18:06
[2019-02-08 18:14] LABS: BASO # 0.1 x10^3/uL (0.0-0.2); BASO % 1 % (0-3); EOS # 0.3 x10^3/uL (0.0-0.7); EOS % 2 % (0-3); LYMPH % 13 % (24-48); MEAN CORPUSCULAR HEMOGLOBIN 27 pg (25-35); MEAN CORPUSCULAR HGB CONC 32 g/dL (31-37); MEAN CORPUSCULAR VOLUME 84 fL (79-100); MONO # 1.4 x10^3/uL (0.0-1.1); MONO % 9 % (0-9); NEUT # 11.6 x10^3uL (1.8-7.7); NEUT % 75 % (31-73); PLATELET COUNT 220 x10^3/uL (140-400); RED BLOOD COUNT 4.44 x10^6/uL (4.30-5.70); RED CELL DISTRIBUTION WIDTH 20.5 % (11.5-14.5); WHITE BLOOD COUNT 15.4 x10^3/uL (4.0-11.0)
--- NOTE | 2019-02-08 18:16 | RAD ---
PA and lateral chest. HISTORY: Short of breath PA and lateral views were taken of the chest. Lungs are clear. Patient had previous bypass. There are nipple shadows on each side. There is no pleural effusion. IMPRESSION: 1. No acute infiltrates. Electronically signed by: Oscar Lentz MD (02/08/2019 6:13 PM) [facility]
[2019-02-08 18:30] LABS: CALCIUM 9.1 mg/dL (8.5-10.1); CREATININE 1.5 mg/dL (0.7-1.3); GFR 46.5; POTASSIUM 3.8 mmol/L (3.5-5.1)
[2019-02-08 18:36] LABS: ALBUMIN 3.1 g/dL (3.4-5.0); ALBUMIN/GLOBULIN RATIO 0.6 (1.0-1.7); TOTAL BILIRUBIN 0.4 mg/dL (0.2-1.0); TOTAL PROTEIN 8.3 g/dL (6.4-8.2)
--- NOTE | 2019-02-08 19:01 | RAD ---
CT brain without contrast. HISTORY: Headaches, neck stiffness, fever CT scan of the brain was done without contrast. Sinuses are clear. Mastoids are normally aerated. There is no intracranial hemorrhage or subdural hematoma. There is no mass or shift of the midline. An acute CVA is not identified. Ventricles are normal in size. IMPRESSION: 1. No intracranial hemorrhage or acute finding noted. PQRS Compliance Statement: One or more of the following individualized dose reduction techniques were utilized for this examination: 1. Automated exposure control 2. Adjustment of the mA and/or kV according to patient size 3. Use of iterative reconstruction technique Electronically signed by: Oscar Lentz MD (02/08/2019 6:58 PM) [facility]
[2019-02-08] MEDS ORDERED: CYCL10TA2 PO (19:47)
[2019-02-08] MEDS ORDERED: NAPR500T8 PO (19:47)
[2019-02-08 19:55] LABS: MICROCYTOSIS SLIGHT; PLT ESTIMATE ADEQUATE (ADEQUATE)
[2019-02-08] MEDS ORDERED: KETOROLAC 15 MG/ML VIAL. IV ONE (20:00)
[2019-02-08 20:20] VITALS: BP 139/67
== END 2019-02-08 20:05 | disposition home or self-care (01) ==
LOC: ER 15:56
DX: B34.9 Viral infection, unspecified (principal); R07.89 Other chest pain; R51 Headache; M54.2 Cervicalgia; J02.9 Acute pharyngitis, unspecified; R06.02 Shortness of breath; I10 Essential (primary) hypertension; I25.10 Atherosclerotic heart disease of native coronary artery without angina pectoris; Z95.1 Presence of aortocoronary bypass graft
CPT/HCPCS: 36415; 70450; 71046; 80053; 83605; 85025; 94640; 96374; 96375; 99285; J1885; J2930; J7030; J7620

== ENCOUNTER → 2020-10-23 | Outpatient (CLI) | payer OTHER ==
[~2020-10-23] MED LIST changes: -AMIO200T4 PO; +AMIO200T6 PO; +AMLO-187 PO; -AMLO10TA8 PO; +CYCL10TA2 PO; -MELA3TAB2 PO; +MELA3TAB4 PO; +MULT-445 PO; -MULT1TAB52 PO; +NAPR500T8 PO; -NITR0.4T SL; +NITR0.4T24 SL; +POTA20TA4 PO; -POTA20TA82 PO; +REGADENOSON 0.4 MG/5 ML DISP.SYRIN. IV ONE
--- NOTE | 2020-10-23 13:07 | RAD ---
MR#: [id number] Date of Study: 10/23/2020 Ordering Physician: TOYA GAMING, Referring Physician: RONALD BENAVIDEZ Tech: VINCENT Mcdonald, ARRT (R) (N) APPROVED REPORT Test Type: Pharmacological Stress Nurse/Tech: Reta Padilla RN Test Indications: CAD Cardiac History: CAD, CABG in 2019 x2, HTN, See EMR. Medications: ASA 81mg, See EMR. Medical History: COPD, Smoker x 45yrs., Hep C, See EMR. Resting ECG: SR Resting Heart Rate: 73 bpm Resting Blood Pressure: 133/74mmHg Pretest Chest Pain: No chest pain Nurse/Tech Notes Lungs CTA, Heart tones regular. Consent: The procedure was explained to the patient in lay terms. Informed consent was witnessed. Darrius eout was entered into [employer] software. History and Stress Test performed by RT Francis (R) (N) Pharm. Details Pharmacologic stress testing was performed using 0.4mg per 5ml of regadenoson given intravenously ove r 7-10 seconds. Stress Symptoms No chest pain or symptoms. POST EXERCISE Reason for Termination: Infusion complete Max HR: 85 bpm Max Blood Pressure: 137/61mmHg Blood Pressure response to exercise: Normal blood pressure response during stress. Heart Rate response to exercise: WNL Chest Pain: No. Arrhythmia: No. ST Change: No. No changes from baseline EKG. INTERPRETATION Stress EKG Conclusion: Baseline EKG showed sinus rhythm. No ischemic changes at peak stress. No arr hythmias. Imaging Protocol IMAGE PROTOCOL: Rest Tc-99m/stress Tc-99m 1 day Rest: Stress: Viability: Radiopharm.Tc99m [id number] Sestamibi [id number] 31mCi Img Date 10/23/2020 10/23/2020 Inj-Img [id number]. 60min. Rest Admin Site:IV - Right WristAdministrator:RT Francis (Blas)(N) Stress Admin Site: IV - Right WristAdministrator: RT Francis (Blas)(N) STRESS DATA End Diast. Vol.56.0mlLVEDV index BSA30.0ml End Syst. Vol.19.0mlLVESV index BSA10.0ml Myocardial Mass99.0gEject. Doqlmamz79.0% Stress Scores Regional WT2.00Summed WT17.00 Regional WM1.00Summed WM10.00 Study quality was good. Left Ventricular size was Normal at Rest and Stress. Lung uptake was . Left Ventricular ejection fraction is 70%. The rest and stress images show normal perfusion, normal contraction and thickening. LV Perf. Quant 17 Seg. SSS0.00 17 Seg. SRS1.00 17 Seg. SDS0.00 Stress Defect Extent (% LAD)0.00Rest Defect Extent (% LAD)0.00Rev. Defect Extent (% LAD)0.00 Stress Defect Extent (% LCX) 0.00Rest Defect Extent (% LCX)2.50Rev. Defect Extent (% LCX)0.00 Stress Defect Extent (% RCA)0.00Rest Defect Extent (% RCA)0.00Rev. Defect Extent (% RCA)0.00 Stress Defect Extent (% JAMEEL)0.00Rest Defect Extent (% JAMEEL)2.00Rev. Defect Extent (% JAMEEL)0.00 Conclusion 1. Regadenoson cardioisotope stress test did not show any evidence of ischemia or infarct. 2. Normal left ventricular systolic function with ejection fraction calculated at 70%. 3. Low risk for cardiac events. Signed by : Yaya Blackman, Electronically Approved : 10/23/2020 13:06:49
== END ==
LOC: NM 08:57
PROVIDERS: ATTEND Internal Medicine Cardiovascular Disease
DX: Z01.810 Encounter for preprocedural cardiovascular examination (principal); I10 Essential (primary) hypertension; Z95.1 Presence of aortocoronary bypass graft
CPT/HCPCS: 78452; 93017; A9500; J2785

== ENCOUNTER → 2021-11-25 | Outpatient (CLI) | payer MEDICARE, OTHER ==
[~2021-11-25] MED LIST changes: +AMIO200T53 PO; -AMIO200T6 PO; +CYCL10TA19 PO; -CYCL10TA2 PO; +IOHEXOL 300 MG/ML 100ML VIAL. IV ONE; -REGADENOSON 0.4 MG/5 ML DISP.SYRIN. IV ONE
--- NOTE | 2021-11-25 09:44 | KCIC ---
EXAMINATION: CTA ABDOMEN AND PELVIS WITHOUT IV CONTRAST. Technique: Axial images with coronal and sagittal reconstructions with MIP technique are performed of abdomen and pelvis with angiogram protocol. 75 mL of Omnipaque catheter 300 administered intravenou sly. One or more of the following radiation dose reduction techniques was used: automated exposure control , adjustment of mA and/or KV according to patient size, and/or utilization of iterative reconstructio n technique. HISTORY: 71 years Male Reason: GLUTEAL CLAUDICATION, arterial atherosclerotic disease: COMPARISON: None. FINDINGS: There is a 3 cm from infrarenal abdominal aortic aneurysm. The iliac arteries demonstrate significant calcified atherosclerotic plaque with the 50 percent steno sis in the right common iliac artery. The right internal iliac artery demonstrates estimated 70 perce nt focal stenosis. The left common iliac artery also demonstrates significant calcified plaque with 5 0 percent stenosis. There is 50-70 percent stenosis estimated at the origin of the catheter left inte rnal iliac artery. Up to 30 percent stenosis in the external iliac artery seen. The HEALTH TE[employer]ER on the right demonstrates 50 percent stenosis. The HEALTH TEACHER on the left demonstrate 50 percent sarahi nosis distally. The DENA is patent. The SMA demonstrate significant proximal stenosis estimated at the 90 percent. The celiac trunk demonstrate 50 percent proximal stenosis. The renal arteries demonstrate high-grade stenosis bilaterally at the origin of the vessel, at least 80 percent stenosis. The lung bases demonstrate emphysema changes. The liver, spleen, adrenal glands, and the pancreas janice ear unremarkable. Layering densities in the gallbladder seen which could represent sludge or possible small stones. No evidence of cholecystitis. The kidneys have symmetric enhancement. There is no hydronephrosis. The there are bladder appear unremarkable. The prostate is a 4.1 cm in transverse dimension. There is no bowel obstruction. There is diverticulosis of the colon with no diverticulitis. The appendix is n ormal. There is a wide neck fat-containing ventral hernia in the subxiphoid region. No significant free flui d or fluid collection in the abdomen or pelvis. Advanced degenerative changes seen in the lower lumbar spine with bilateral moderate to severe forami nal stenosis at L5/S1 level. IMPRESSION: 1. Infrarenal AAA measuring 3 cm. Follow-up study in 3 years is recommended to reassess the aneurysm size. 2. Diffuse atherosclerotic plaque effusion or moderate to severe stenosis of the proximal aspect of t he internal iliac arteries bilaterally. The degree of stenosis estimation is less than optimal second davie to artifacts from calcifications. 3. 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 4. Fat-containing ventral hernia in the subxiphoid region. 5. Diverticulosis. No diverticulitis. 6. Emphysema. Electronically signed by: Juarez Benedict MD (11/25/2021 9:42 AM) [id number]
--- NOTE | 2021-11-25 12:36 | KCIC ---
EXAMINATION: CT chest without IV contrast INDICATION:71 years, Male, nicotine dependence, screening for lung cancer. COMPARISON: 06/24/2018 TECHNIQUE: Low-dose CT scan of the chest with 3-D MIP coronal and sagittal reconstructions was [facility]. Exposure: One or more of the following individualized dose reduction techniques were utilized for [facility] s examination: 1. Automated exposure control 2. Adjustment of the mA and/or kV according to patient size 3. Use of iterative reconstruction technique. Lung-RADS assessment categories: 0: Incomplete. Additional lung cancer screening CT images and/or comparison to prior chest CT examina tions is needed. 1: Negative. Continue annual screening with low dose CT (LDCT) in 12 months. 2: Benign appearance or behavior. Continue annual screening with LDCT in 12 months. 3: Probably benign. 6 month follow-up LDCT recommended. 4A: Suspicious. 3 month LDCT follow up, PET/CT may be used when there is ? 8mm (? 268 mm3) solid comp onent. 4B or 4X: Very Suspicious. Chest CT with or without contrast, PET/CT, and/or biopsy recommended. PET/ CT may be used when there is ? 8mm (? 268 mm3) solid component. For new large nodules that develop on an annual repeat screening CT, a 1 month LDCT may be recommended to address potentially infectious o r inflammatory conditions. Modifiers: S: Clinically significant or potentially clinically significant findings (non-lung cancer). Exposure: One or more of the following individualized dose reduction techniques were utilized for [facility] examination: 1. Automated exposure control 2. Adjustment of the mA and/or kV according to patient size 3. Use of iterative reconstruction technique. FINDINGS: Suboptimal exam due to patient's body habitus. LUNGS/PLEURA: Central airways are patent. Moderate pulmonary emphysema. Dependent subsegmental atelec tasis in bibasilar lungs. No focal consolidation, pleural effusion or pneumothorax. Left apical linear and multiple nodular opacities, the largest measures 3.0 x 1.0 cm. Additional, smaller opacities adjacent to the aforementioned lesion measuring up to 0.8 cm (series 6 image 63). There is a 8.7 mm, solid pulmonary nodule in the anterior left upper lobe (series 6 image 85). There is a 4 mm solid pulmonary nodule in the anterior left upper lobe (series 6 image 124). There is a 3 mm fissure based nodule in the left lower lobe (series 6 image 145). There is a 3 mm pulmonary nodule in the anterior left upper lobe (series 6 image 83). MEDIASTINUM: No pathologic mediastinal or hilar adenopathy. Calcified mediastinal lymph nodes. The th oracic aorta and pulmonary arteries are normal in caliber. The heart is normal in size. No pericardia l effusion. Severe calcified coronary atherosclerosis. The visualized thyroid and the esophagus are u nremarkable. AXILLA/SOFT TISSUE: No supraclavicular or axillary adenopathy. Regional soft tissues are within wdight l limits. UPPER ABDOMEN: The visualized upper abdomen appears unremarkable, within the limitation of noncontras t exam. BONES: No evidence of acute fractures or aggressive osseous lesions. Median sternotomy wires. Multile amanda degenerative changes in the spine. IMPRESSION: 1. Lung-RADS 4A: Suspicious. 3 month LDCT follow up, PET/CT may be used when there is ? 8mm (? 268 mm 3) solid component. 2. Left apical linear and multiple solid nodular pulmonary opacities measuring up to 3.0 cm, new sinc e June 2018. Findings indeterminate, may represent pulmonary scarring. However, neoplastic proces s cannot be excluded. 3. Additional, new multiple solid pulmonary nodules in the left upper lobe measuring up to 8.7 mm. At tention follow-up exam. 4. Moderate pulmonary emphysema. Electronically signed by: Brando Petersen MD (11/25/2021 12:34 PM) [facility]
== END ==
LOC: KCIC CT 08:19
PROVIDERS: ATTEND Nurse Practitioner Family
DX: R91.8 Other nonspecific abnormal finding of lung field (principal); I25.10 Atherosclerotic heart disease of native coronary artery without angina pectoris; I89.8 Other specified noninfective disorders of lymphatic vessels and lymph nodes; I71.4 Abdominal aortic aneurysm, without rupture; I70.8 Atherosclerosis of other arteries; I70.1 Atherosclerosis of renal artery; K43.9 Ventral hernia without obstruction or gangrene; K57.30 Diverticulosis of large intestine without perforation or abscess without bleeding; J43.9 Emphysema, unspecified; M47.816 Spondylosis without myelopathy or radiculopathy, lumbar region; M48.07 Spinal stenosis, lumbosacral region; F17.210 Nicotine dependence, cigarettes, uncomplicated
CPT/HCPCS: 71271; 74174; 82565; Q9967